=== PATIENT | female | born 1950 ===

== ENCOUNTER 2023-02-10 08:39 | Outpatient (CLI) | payer MEDICARE | END 2023-02-10 08:40 | disposition home or self-care (01) | LOC: CSHWCC 08:39 | PROVIDERS: ATTEND Nurse Practitioner Family | DX: T81.89XD Other complications of procedures, not elsewhere classified, subsequent encounter (principal) ==

== ENCOUNTER 2023-02-16 12:54 | Outpatient (CLI) | payer MEDICARE | END 2023-02-16 12:55 | disposition home or self-care (01) | LOC: CSHWCC 12:54 | PROVIDERS: ATTEND Nurse Practitioner Family | DX: T81.89XD Other complications of procedures, not elsewhere classified, subsequent encounter (principal) | CPT/HCPCS: 97139; G0463; 99213 ==

== ENCOUNTER 2023-03-02 13:31 | Outpatient (CLI) | payer MEDICARE | END 2023-03-02 13:32 | disposition home or self-care (01) | LOC: CSHWCC 13:31 | PROVIDERS: ATTEND Nurse Practitioner Family | DX: T81.89XD Other complications of procedures, not elsewhere classified, subsequent encounter (principal) | CPT/HCPCS: 99213; G0463 ==